=== PATIENT | female | born 1990 | race American Indian/Alaskan Native ===

== ENCOUNTER 2018-09-06 17:36 | Inpatient (IN) | payer OTHER ==
--- NOTE | 2018-09-06 18:06 | History and Physical Report ---
History of Present Illness Date of examination: 09/07/18 Date of admission: 09/06/18 17:36 History of present illness: Sent from [facility] due to low amniotic fluid index seen on ultrasound today pramod oconnell's is complicated by morbid obesity and absent nasal bone patient's been admitted for serial induction Menstrual History Regularity: regular Duration: 5 LMP: 12/20/2017 LMP reliability: definite LMP character: normal test type: urine test Date: 02/11/2018 BC at conception: none Planned ? yes EDC Calculations LMP: 09/26/2018 EDC Confirmation: 09/26/2018 ast History : 4 Term Births: 2 Premature Births: 0 Living Children: 2 Para: 2 Mult. Births: 0 Prev : 0 Prev. attempt? 0 Aborta: 1 Elect. Ab: 0 Spont. Ab: 1 Ectopics: 0 # 1 Delivery date: 06/28/2009 Weeks Gestation: 40 Delivery type: Vaginal Anesthesia type: epidural Delivery location: [facility] Sex: male weight: 9.63 # 2 Delivery date: 2014 Weeks Gestation: 12 Delivery type: SAB Comments: D&C # 3 Delivery date: 06/16/2016 Weeks Gestation: 40 Delivery type: Hours of labor: 8 Anesthesia type: none Delivery location: [place] Infant Sex: Female weight: 7-7 Name: Jorge Past Medical History: Negative Past Medical History Past Surgical History: Breast Reduction: (2012) D&C: (2014) Family History Summary: Other family member - Has No Family History of Ovarvian Cancer - Entered On: 02/11/2018 Other family member - Has No Family History of Colon Cancer - Entered On: 02/11/2018 Other family member - Has No Family History of Breast Cancer - Entered On: 02/11/2018 Other family member - Has Family History of Hypertension - Entered On: 02/11/2018 Other family member - Has Family History of Asthma - Entered On: 02/11/2018 General Comments - FH: no breast, ovarian or colon cancer Social History: single, no etoh, no illicit drug use, no tobacco use Marital Status: engaged Children: 2 Occupation: [employer] Risk Factors: Smoked Tobacco Use: Never smoker Drug use: no Alcohol use: no Dietary Counseling: pn yes Past Medical History 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): Breast Reduction: (2013) D&C: (2015) Abnormal PAP: negative ROXI Exposure: negative Infertility: negative Uterine Anomaly: negative Uterine Surgery (not C/S): negative Other Gynecologic Problems: negative Social Hx: single, no etoh, no illicit drug use, no tobacco use Marital Status: engaged Children: 2 Occupation: [employer] Infection History Hx of STD: chlamydia Genetic History Congenital Heart Defect: Mom: no Dad: no Randall Disease: Mom: no Dad: no Thalassemia Mom: no Dad: no Neural Tube Defect Mom: no Dad: no Down's Syndrome Mom: no Dad: no Isaias-Sachs Mom: no Dad: no Sickle Cell Disease/Trait Mom: no Dad: no Hemophilia Mom: no Dad: no Muscular Dystrophy Mom: no Dad: no Cystic Fibrosis Mom: no Dad: no [place] Chorea Mom: no Dad: no Mental Retardation Mom: no Dad: no Fragile X Mom: no Dad: no Other Genetic/Chromosomal Disorder Mom: no Dad: no Child w/other defect Mom: no Dad: no Current Allergies (reviewed today): PCN (Critical) * AMOXICILLIN (Critical) Past History Past Medical History: other (see HPI) Past Surgical History: other (see HPI) 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) Family/Genetic History: other (see HPI) Social history: other (see HPI) - Obstetrical History Expected Date of Delivery: 09/26/18 Actual Gestation: 37 Week(s) 2 Day(s) : 4 Para: 2 Hx # Term Pregnancies: 2 Number of Pregnancies: 0 Spontaneous Abortions: 1 Induced : 0 Number of Living Children: 2 Medications and Allergies Allergies Allergy/AdvReac Type Severity Reaction Status Date / Time amoxicillin Allergy Severe Swelling Verified 09/06/18 18:26 Penicillins AdvReac Severe Swelling Verified 09/06/18 18:25 Home Medications Medication Instructions Recorded Confirmed Last Taken Type Pnv No.95/Ferrous Fum/Folic AC 1 tab PO DAILY 09/06/18 09/06/18 09/04/18 10:00 History [ Formula Tablet] - Physical Exam Breasts: Positive: deferred Lungs: Positive: Normal air movement Abdomen: Positive: normal appearance, soft Vagina: Positive: normal moisture Uterus: Positive: enlarged Results Result Diagrams: 09/06/18 19:30 All other labs normal. Assessment and Plan - Patient Problems (1) Oligohydramnios Current Visit: Yes Status: Acute Qualifiers: Fetus number: single or unspecified fetus Trimester: third trimester Qualified Code(s): O41.03X0 - Oligohydramnios, third trimester, not applicable or unspecified Plan to address problem: Admit for serial induction with Cervidil tonight and Pitocin in the morning (2) Body mass index (BMI) 45.0-49.9, adult Current Visit: Yes Status: Acute (3) 37 weeks gestation of Current Visit: Yes Status: Acute
[2018-09-06] MEDS ORDERED: PHENERGAN PO PRN (19:09)
[2018-09-06] MEDS ORDERED: BRETHINE SUB-Q PRN (19:09)
[2018-09-06] MEDS ORDERED: BRETHINE IVP PRN (19:09)
[2018-09-06] MEDS ORDERED: STADOL IV PRN (19:09)
[2018-09-06] MEDS ORDERED: XYLOCAINE 2% INFILTRATI ONE (19:09)
[2018-09-06] MEDS: LACTATED RINGERS 1,000 ML IV SCH (19:46)
[2018-09-06 19:47] LABS: Hematocrit 31.3 % (30.3-42.9); Hemoglobin 10.3 gm/dl (10.1-14.3); Mean Corpuscular HGB Conc 33 % (30-34); Platelet Count 230 K/mm3 (140-440); Red Blood Count 4.52 M/mm3 (3.65-5.03); Red Cell Distribution Width 14.7 % (13.2-15.2)
[2018-09-06 19:52] LABS: Mean Corpuscular Volume 69 fl (79-97)
[2018-09-06] MEDS ORDERED: PITOCin/NS 20 UNIT/1000ML DRIP 20 UNITS/1,000 ML BAG IV SCH (20:00)
[2018-09-06] MEDS ORDERED: CERVIDIL VG ONE (21:00)
[2018-09-07] MEDS: LACTATED RINGERS 1,000 ML IV SCH ×2 (02:49→11:48)
--- NOTE | 2018-09-07 07:31 | Progress Note ---
Assessment and Plan pt resting with eyes closed, no complaints. toco registering irritability/ctx q2-4 but patient is unaware. Cervidil to be removed @ 0900. Family to get light breakfast for patient and patient is to do AM care, then will start pitocin. anticipate . - Patient Problems (1) 37 weeks gestation of Current Visit: Yes Status: Acute (2) Body mass index (BMI) 45.0-49.9, adult Current Visit: Yes Status: Acute (3) Oligohydramnios Current Visit: Yes Status: Acute Qualifiers: Fetus number: single or unspecified fetus Trimester: third trimester Qualified Code(s): O41.03X0 - Oligohydramnios, third trimester, not applicable or unspecified Subjective - Subjective Date of service: 09/07/18 Principal diagnosis: IUP @ 37+3, oligo Patient reports: movement normal, no new complaints Objective - Vital Signs Vital Signs: Vital Signs - 12hr 09/06/18 09/06/18 09/06/18 19:36 19:41 19:46 Temperature Pulse Rate 84 78 83 Respiratory Rate Blood Pressure Blood Pressure [Left] O2 Sat by Pulse 96 95 95 Oximetry 09/06/18 09/06/18 09/06/18 19:51 19:57 20:02 Temperature Pulse Rate 82 87 97 H Respiratory Rate Blood Pressure Blood Pressure [Left] O2 Sat by Pulse 95 96 97 Oximetry 09/06/18 09/06/18 09/06/18 20:07 20:12 20:17 Temperature Pulse Rate 83 94 H 84 Respiratory Rate Blood Pressure Blood Pressure [Left] O2 Sat by Pulse 98 96 96 Oximetry 09/06/18 09/06/18 09/06/18 20:20 20:22 20:27 Temperature Pulse Rate 90 95 H 82 Respiratory Rate Blood Pressure Blood Pressure [Left] O2 Sat by Pulse 94 93 95 Oximetry 09/06/18 09/06/18 09/06/18 20:32 20:37 20:38 Temperature Pulse Rate 105 H 106 H 99 H Respiratory Rate Blood Pressure Blood Pressure [Left] O2 Sat by Pulse 95 94 94 Oximetry 09/06/18 09/06/18 09/06/18 20:42 20:44 20:47 Temperature Pulse Rate 98 H 107 H 83 Respiratory Rate Blood Pressure Blood Pressure [Left] O2 Sat by Pulse 95 94 94 Oximetry 09/07/18 09/07/18 09/07/18 00:22 00:52 01:22 Temperature Pulse Rate 89 75 75 Respiratory Rate Blood Pressure 118/66 123/61 118/61 Blood Pressure [Left] O2 Sat by Pulse Oximetry 09/07/18 09/07/18 09/07/18 01:53 02:22 02:53 Temperature Pulse Rate 74 89 74 Respiratory Rate Blood Pressure 93/50 99/56 104/59 Blood Pressure [Left] O2 Sat by Pulse Oximetry 09/07/18 09/07/18 09/07/18 03:22 03:52 04:22 Temperature Pulse Rate 72 71 75 Respiratory Rate Blood Pressure 106/57 94/52 104/57 Blood Pressure [Left] O2 Sat by Pulse Oximetry 09/07/18 09/07/18 09/07/18 04:52 05:22 05:52 Temperature Pulse Rate 80 78 83 Respiratory Rate Blood Pressure 115/67 116/62 115/64 Blood Pressure [Left] O2 Sat by Pulse Oximetry 09/07/18 09/07/18 09/07/18 06:22 07:00 07:01 Temperature 97.7 F Pulse Rate 76 93 H 93 H Respiratory 16 Rate Blood Pressure 113/66 111/74 Blood Pressure 111/74 [Left] O2 Sat by Pulse Oximetry 09/07/18 07:22 Temperature Pulse Rate 85 Respiratory Rate Blood Pressure 131/74 Blood Pressure [Left] O2 Sat by Pulse Oximetry - Exam Breasts: normal Cardiovascular: Regular rate Lungs: Clear to auscultation, Normal air movement Abdomen: Present: normal appearance, soft Vulva: both: normal Uterus: Present: normal FHR: auscultation normal, category 1 Uterine Contraction Monitor Mode: External Uterine Contraction Pattern: Irregular Uterine Tone Measurement Phase: Contraction Uterine Contraction Intensity: Mild Extremities: normal Deep Tendon Reflex Grade: Normal +2 - Labs Labs: Abnormal Labs 09/06/18 19:30 MCV 69 L MCH 23 L Laboratory Results - last 24 hr 09/06/18 09/06/18 19:30 19:30 WBC 7.8 RBC 4.52 Hgb 10.3 Hct 31.3 MCV 69 L MCH 23 L MCHC 33 RDW 14.7 Plt Count 230 Blood Type O POSITIVE Antibody Screen Negative
[2018-09-07] MEDS ORDERED: PITOCin/NS 30 UNIT/500ML 30 UNITS/500 ML BAG IV SCH (09:30)
--- NOTE | 2018-09-07 11:23 | Anesthesia Consultation ---
Anesthesia Consult and Med Hx - Airway Anesthetic Teeth Evaluation: Good ROM Head & Neck: Adequate Mental/Hyoid Distance: Adequate Mallampati Class: Class II Intubation Access Assessment: Probably Good - Pulmonary Exam CTA: Yes - Cardiac Exam Cardiac Exam: RRR - Pre-Operative Health Status ASA Pre-Surgery Classification: ASA2 Proposed Anesthetic Plan: Epidural, Spinal - Pulmonary Hx Smoking: No Hx Asthma: No Hx Respiratory Symptoms: No SOB: Yes COPD: No Home Oxygen Therapy: No Hx Pneumonia: No Hx Sleep Apnea: No - Cardiovascular System Hx Hypertension: No Hx Coronary Artery Disease: No Hx Heart Attack/AMI: No Hx Angina: No Hx Percutaneous Transluminal Coronary Angioplasty (PTCA): No Hx Cardia Arrhythmia: No Hx Pacemaker: No Hx Internal Defibrillator: No Hx Valvular Heart Disease: No Hx Heart Murmur: No Hx Peripheral Vascular Disease: No - Central Nervous System Hx Neuromuscular Disorder: No Hx Seizures: No CVA: No Hx Back Pain: No Hx Psychiatric Problems: No - Gastrointestinal Hx Ulcer: No Hx Gastroesophageal Reflux Disease: No - Endocrine Hx Renal Disease: No Hx End Stage Renal Disease: No Hx Cirrhosis: No Hx Liver Disease: No Hx Insulin Dependent Diabetes: No Hx Non-Insulin Dependent Diabetes: No Hx Thyroid Disease: No Hx Hypothyroidism: No Hx Hyperthyroidism: No - Hematic Hx Anemia: No Hx Sickle Cell Disease: No - Other Systems Hx Alcohol Use: No Hx Substance Use: No Hx Cancer: No Hx Obesity: Yes
--- NOTE | 2018-09-07 13:28 | Progress Note ---
Assessment and Plan called by nurse due to large amount of blood noted from vagina. Approx 100ml of Bright red blood and mucus noted on chucks and towel - no active bleeding at this time. Patient did not tolerate SVE; discussed recommendation for AROM and internal monitors, patient agreed. IV sedation given and SVE done without difficulty. AROM - Bloody fluid. IUPC and ISE placed without difficulty. small blood clot from vagina after placement but no active bleeding. Patient reports precep delivery with last child. Does not feel the need for epidural at this time. CTX intensity palpated moderate (corresponds to reading by toco), resting tone soft. Patient's level of pain seems appropriate for current labor progress. FHT CAT 1 even after IV sedation. Will continue to monotor closely. Dr. Nino consulted prior to AROM and placement of IUPC/ISE. - Patient Problems (1) 37 weeks gestation of Current Visit: Yes Status: Acute (2) Body mass index (BMI) 45.0-49.9, adult Current Visit: Yes Status: Acute (3) Oligohydramnios Current Visit: Yes Status: Acute Qualifiers: Fetus number: single or unspecified fetus Trimester: third trimester Qualified Code(s): O41.03X0 - Oligohydramnios, third trimester, not applicable or unspecified (4) Vaginal bleeding during , antepartum Current Visit: Yes Status: Acute Subjective - Subjective Date of service: 09/07/18 Principal diagnosis: IUP @ 37+3, oligo Patient reports: loss of fluid, vaginal bleeding, movement normal, contractions Objective - Vital Signs Vital Signs: Vital Signs - 12hr 09/07/18 09/07/18 09/07/18 01:22 01:53 02:22 Temperature Pulse Rate 75 74 89 Respiratory Rate Blood Pressure 118/61 93/50 99/56 Blood Pressure [Left] 09/07/18 09/07/18 09/07/18 02:53 03:22 03:52 Temperature Pulse Rate 74 72 71 Respiratory Rate Blood Pressure 104/59 106/57 94/52 Blood Pressure [Left] 09/07/18 09/07/18 09/07/18 04:22 04:52 05:22 Temperature Pulse Rate 75 80 78 Respiratory Rate Blood Pressure 104/57 115/67 116/62 Blood Pressure [Left] 09/07/18 09/07/18 09/07/18 05:52 06:22 07:00 Temperature Pulse Rate 83 76 93 H Respiratory Rate Blood Pressure 115/64 113/66 111/74 Blood Pressure [Left] 09/07/18 09/07/18 09/07/18 07:01 07:22 07:52 Temperature 97.7 F Pulse Rate 93 H 85 87 Respiratory 16 Rate Blood Pressure 131/74 123/75 Blood Pressure 111/74 [Left] 09/07/18 10:04 Temperature Pulse Rate 106 H Respiratory Rate Blood Pressure 127/74 Blood Pressure [Left] - Exam Breasts: normal Cardiovascular: Regular rate Lungs: Clear to auscultation, Normal air movement Abdomen: Present: normal appearance, soft Vulva: both: normal Uterus: Present: normal FHR: category 1 Uterine Contraction Monitor Mode: Internal Cervical Dilatation: 2.5 Cervical Effacement Percentage: 70 station: -1 Uterine Contraction Frequency (min): 2 Uterine Contraction Duration: 60 Uterine Contraction Pattern: Regular Uterine Tone Measurement Phase: Contraction Uterine Contraction Intensity: Moderate (resting tone soft) Extremities: normal - Labs Labs: Abnormal Labs 09/06/18 19:30 MCV 69 L MCH 23 L Laboratory Results - last 24 hr 09/06/18 09/06/18 19:30 19:30 WBC 7.8 RBC 4.52 Hgb 10.3 Hct 31.3 MCV 69 L MCH 23 L MCHC 33 RDW 14.7 Plt Count 230 Blood Type O POSITIVE Antibody Screen Negative
[2018-09-07] MEDS ORDERED: BICITRA ONE (13:35)
[2018-09-07] MEDS ORDERED: XYLOCAINE 2% INFILTRATI ONE (13:35)
[2018-09-07] MEDS ORDERED: CYTOTEC ONE ×2 (13:36)
[2018-09-07] MEDS ORDERED: fentaNYL-BUPIV 2 MCG/ML-0.125% 200 MCG/100 ML BAG EPIDURAL ONE (15:24)
[2018-09-07] MEDS ORDERED: NARCAN 2 MG/2 ML IV PRN (16:05)
--- NOTE | 2018-09-07 16:30 | Procedure Note ---
OB Delivery Note - Delivery Date of Delivery: 09/07/18 ( female) Chief Concierge: MALLIKA RAO Estimated blood loss: 300cc - Vaginal Delivery presentation: vertex Delivery position: OA Intrapartum events: bleeding site-undetermine, other(please specify) (oligohydramnios) Delivery induction: cervidil Delivery augmentation: rupture of membranes, pitocin Delivery monitor: internal FHT, internal uterine Route of delivery: Delivery placenta: spontaneous Delivery cord: nuchal cord (tight around neck and giovanna-crossed across chest), 3 umbilical vessels Episiotomy: none Delivery laceration: none Anesthesia: epidural Delivery comments: patient complete after epidural, female del without patient pushing over intact perineum. cord around neck x 1 and crossed chest - somersaulted through. infant crying and vigiours, placed skin to skin on mother's abdomen. 3 vessel cord clamped and cut. cord blood collected. Placenta del intact and complete. sent to pathology. pit to IVF. no lacerations to repair. Apgars 9/9, wt 6#6oz. mother and remain LDR stable. - Infant A at 1 minute: 9 at 5 minutes: 9 Infant Gender: Female (6#6)
[2018-09-07] MEDS ORDERED: fentaNYL-BUPIV 2 MCG/ML-0.125% 200 MCG/100 ML BAG EPIDURAL SCH (17:00)
[2018-09-07] MEDS ORDERED: SODIUM CHLORIDE FLUSH SYRINGE 10 ML IV NR (18:17)
[2018-09-07] MEDS ORDERED: BENADRYL PO PRN (18:17)
[2018-09-07] MEDS ORDERED: PHENERGAN PO PRN (18:17)
[2018-09-07] MEDS ORDERED: MILK OF MAGNESIA PO PRN (18:17)
[2018-09-07] MEDS ORDERED: TUCKS PAD TP PRN (18:17)
[2018-09-07] MEDS ORDERED: PITOCin/NS 20 UNIT/1000ML DRIP 20 UNITS/1,000 ML BAG IV SCH (18:17)
[2018-09-07] MEDS ORDERED: DULCOLAX PR PRN (18:17)
[2018-09-07] MEDS ORDERED: ZOFRAN IV PRN (18:17)
[2018-09-07] MEDS ORDERED: LANSINOH TP PRN (18:17)
[2018-09-07] MEDS ORDERED: TYLENOL PO PRN (18:17)
[2018-09-07] MEDS ORDERED: IBUPROFEN ONE (18:33)
[2018-09-07] MEDS ORDERED: IBUPROFEN PO ONE (18:33)
[2018-09-07 19:36] LABS: Bilirubin,Urine NEG (Negative); Blood,Urine LG (Negative); Color,Urine Yellow (Yellow); Mucus,Urine FEW /HPF; Protein,Urine <15 mg/dL mg/dL (Negative); Urobilinogen,Urine < 2.0 mg/dL (<2.0)
[2018-09-07 19:37] LABS: Alanine Aminotransferase 9 units/L (7-56); Uric Acid 2.7 mg/dL (3.5-7.6)
[2018-09-07 19:40] LABS: RBC,Urine > 182.0 /HPF (0.0-6.0)
[2018-09-07] MEDS ORDERED: MAGNESIUM SULFATE 4GM/100ML 4 GM/100 ML BAG IV ONE (19:54)
[2018-09-07] MEDS ORDERED: APRESOLINE IV PRN (20:19)
--- NOTE | 2018-09-07 20:26 | Event Note ---
Date: 09/07/18 blood pressure elevated (not r/t pain). pre-e labs normal with only trace proteinuria. Discussed with Dr. Nino, will give dx GHTN and give Mag sulfate x 24hr. Pt may be transfered to MBU after mag has been discontinued. Plan discussed with patient, all questions addressed.
[2018-09-07] MEDS ORDERED: PERCOCET 5/325 PO PRN (20:27)
[2018-09-07] MEDS: MAGNESIUM SULFATE 40GM/1000ML 40 GM/1,000 ML BAG IV SCH (21:29)
[2018-09-08] MEDS: NORMODYNE PO SCH ×3 (03:48→22:18)
[2018-09-08] MEDS: COLACE PO SCH ×3 (05:54→22:18)
[2018-09-08] MEDS: FEOSOL PO SCH ×3 (05:55→22:18)
[2018-09-08 05:58] LABS: Hematocrit 31.6 % (30.3-42.9)
[2018-09-08] MEDS: IBUPROFEN PO SCH ×2 (06:26)
--- NOTE | 2018-09-08 07:12 | Progress Note ---
Assessment and Plan - Patient Problems (1) Gestational hypertension with significant proteinuria, Onset Date: ~09/07/18 Current Visit: Yes Status: Acute Plan to address problem: Pt resting No c/o DOMINIQUE, blurred vision, chest pain. BP 130s/80-70 FF below umb Lochia small perineum intact H&H 06/30 stable from admission Doing well s/p vag delivery GHTN on MGSO4 P: continue pathway MGSO4 due down tonight 2054 Subjective - Subjective Date of service: 09/08/18 Principal diagnosis: Day # 1 s/p ; GHTN MGSO4 X 24hrs Patient reports: appetite normal, voiding normally (clear yellow urine to BSB), pain well controlled [place]: doing well Objective - Vital Signs Latest vital signs: Vital Signs Temp Pulse Resp BP BP Pulse Ox 09/08/18 06:55 75 133/88 09/08/18 06:26 18 09/08/18 06:25 98.2 F 85 18 117/67 09/08/18 05:55 80 130/71 09/08/18 05:25 92 H 116/67 09/08/18 04:55 95 H 110/63 09/08/18 04:25 98.0 F 81 18 114/61 09/08/18 03:56 76 94 09/08/18 03:55 68 147/92 94 09/08/18 03:50 79 96 09/08/18 03:48 76 161/96 09/08/18 03:45 80 94 09/08/18 03:44 76 94 09/08/18 03:40 79 95 09/08/18 03:35 77 95 09/08/18 03:33 75 93 09/08/18 03:30 82 95 09/08/18 03:27 73 94 09/08/18 03:25 77 161/96 92 09/08/18 03:21 77 94 09/08/18 03:20 76 95 09/08/18 03:16 74 94 09/08/18 03:15 75 94 09/08/18 03:10 77 93 09/08/18 03:06 80 94 09/08/18 03:05 79 95 09/08/18 03:02 18 09/08/18 03:00 78 95 09/08/18 02:58 83 94 09/08/18 02:55 67 170/90 92 09/08/18 02:52 84 94 09/08/18 02:50 88 93 09/08/18 02:47 84 94 09/08/18 02:45 93 H 92 09/08/18 02:40 79 94 09/08/18 02:39 83 94 09/08/18 02:35 88 90 09/08/18 02:32 77 94 09/08/18 02:30 79 94 09/08/18 02:25 97.8 F 75 18 149/93 149/93 91 09/08/18 02:20 80 93 09/08/18 02:15 77 94 09/08/18 02:14 78 94 09/08/18 02:10 79 93 09/08/18 02:05 78 94 09/08/18 02:02 18 09/08/18 02:00 76 93 09/08/18 01:59 82 94 09/08/18 01:55 70 163/91 91 09/08/18 01:51 79 94 09/08/18 01:50 102 H 97 09/08/18 01:45 79 98 09/08/18 01:40 84 98 09/08/18 01:35 80 98 09/08/18 01:30 81 98 09/08/18 01:25 78 144/78 98 09/08/18 01:20 88 96 09/08/18 01:15 81 96 09/08/18 01:10 85 97 09/08/18 01:05 82 97 09/08/18 01:00 81 97 09/08/18 00:55 80 137/76 97 09/08/18 00:50 83 96 09/08/18 00:45 82 96 09/08/18 00:40 78 97 09/08/18 00:35 85 96 09/08/18 00:30 82 96 09/08/18 00:25 98.0 F 81 18 130/84 130/84 97 09/08/18 00:20 85 96 09/08/18 00:14 78 97 09/08/18 00:09 77 97 09/08/18 00:04 75 97 09/07/18 23:59 81 97 09/07/18 23:55 75 133/66 09/07/18 23:54 79 96 09/07/18 23:49 105 H 94 09/07/18 23:44 92 H 98 09/07/18 23:25 78 148/80 09/07/18 22:56 90 165/74 09/07/18 22:45 91 H 97 09/07/18 22:40 80 96 09/07/18 22:35 77 97 09/07/18 22:25 97.8 F 77 20 158/86 158/86 09/07/18 22:00 85 95 09/07/18 21:55 82 156/80 96 09/07/18 21:50 85 95 09/07/18 21:45 86 95 09/07/18 21:44 86 94 09/07/18 21:40 85 96 09/07/18 21:35 83 95 09/07/18 21:30 85 96 09/07/18 21:25 78 159/78 95 09/07/18 21:20 90 95 09/07/18 21:17 92 H 144/86 09/07/18 21:15 100 H 96 09/07/18 21:12 77 151/84 09/07/18 21:10 84 95 09/07/18 21:07 79 146/79 09/07/18 21:05 79 95 09/07/18 21:02 85 134/100 09/07/18 20:57 89 166/103 09/07/18 20:49 70 98 09/07/18 20:45 76 182/113 09/07/18 20:44 80 97 09/07/18 20:36 81 95 09/07/18 20:33 83 94 09/07/18 20:31 83 97 09/07/18 20:30 98.1 F 90 18 153/82 152/82 09/07/18 20:26 79 94 09/07/18 20:15 74 160/97 09/07/18 20:08 94 H 96 09/07/18 20:03 85 98 09/07/18 20:00 162/108 09/07/18 19:58 78 98 09/07/18 19:53 84 99 09/07/18 19:48 79 98 09/07/18 19:45 80 158/92 09/07/18 19:43 75 97 09/07/18 19:41 91 H 86 09/07/18 19:38 75 96 09/07/18 19:33 99 H 97 09/07/18 19:30 86 154/82 09/07/18 19:28 89 98 09/07/18 19:23 81 97 09/07/18 19:18 83 97 09/07/18 19:15 74 146/89 09/07/18 19:13 82 98 09/07/18 19:08 76 97 09/07/18 19:03 74 98 09/07/18 19:00 91 H 144/89 09/07/18 18:58 97 H 97 09/07/18 18:53 94 H 97 09/07/18 18:48 86 96 09/07/18 18:46 87 94 09/07/18 18:45 82 156/94 09/07/18 18:43 72 155/88 95 09/07/18 18:00 86 147/91 09/07/18 17:50 81 97 09/07/18 17:45 85 146/91 97 09/07/18 17:42 72 150/90 09/07/18 17:40 92 H 96 09/07/18 17:35 83 97 09/07/18 17:30 73 166/99 98 09/07/18 17:25 77 96 09/07/18 17:20 74 97 09/07/18 17:15 91 H 149/91 97 09/07/18 17:10 88 96 09/07/18 17:05 79 97 09/07/18 17:00 79 142/83 97 09/07/18 16:55 74 97 09/07/18 16:50 85 96 09/07/18 16:45 68 151/86 98 09/07/18 16:43 70 135/84 09/07/18 16:41 84 147/86 09/07/18 16:40 83 96 09/07/18 16:39 73 139/79 09/07/18 16:37 68 135/83 09/07/18 16:35 89 139/85 97 09/07/18 16:33 81 138/84 09/07/18 16:31 79 141/84 09/07/18 16:30 86 97 09/07/18 16:29 91 H 139/85 09/07/18 16:27 83 137/79 09/07/18 16:25 89 140/74 95 09/07/18 16:21 91 H 140/91 09/07/18 16:20 96 H 96 09/07/18 16:19 88 142/81 09/07/18 16:15 104 H 96 09/07/18 16:13 96 H 167/93 09/07/18 16:11 86 143/83 09/07/18 16:10 84 98 09/07/18 16:09 99 H 147/88 09/07/18 16:07 82 145/86 09/07/18 16:05 87 142/86 95 09/07/18 16:04 82 94 09/07/18 16:03 93 H 143/84 09/07/18 16:01 86 146/79 09/07/18 16:00 94 H 142/65 96 09/07/18 15:57 88 140/79 09/07/18 15:55 85 137/76 09/07/18 15:54 94 H 98 09/07/18 15:52 95 H 138/78 09/07/18 15:49 81 97 09/07/18 15:45 100 H 149/79 09/07/18 15:44 102 H 98 09/07/18 15:06 89 94 09/07/18 15:02 98.1 F 86 16 143/86 143/86 95 09/07/18 10:04 106 H 127/74 09/07/18 07:52 87 123/75 09/07/18 07:22 85 131/74 Intake and Output 09/07/18 09/08/18 09/08/18 22:59 06:59 14:59 Intake Total 240 1080 Output Total 700 2200 Balance -460 -1120 Intake: Oral 240 1080 Output: Urine 700 2200 Indwelling Catheter 700 2200 Other: Total, Intake Amount 240 360 Total, Output Amount 700 300 Estimated Blood Loss 300 - Exam Breasts: Present: normal (pumping) Cardiovascular: Present: Regular rate Lungs: Present: Normal air movement Abdomen: Present: normal appearance, soft, normal bowel sounds Uterus: Present: normal, firm, fundal height below umbilicus Extremities: Present: normal Incision: Present: normal, dry, intact - Labs Labs: Abnormal lab results 09/07/18 09/08/18 09/08/18 Range/Units 18:36 05:46 05:46 Hgb 10.0 L (10.1-14.3) gm/dl Creatinine 0.5 L (0.7-1.2) mg/dL Uric Acid 2.7 L (3.5-7.6) mg/dL Magnesium 4.50 H (1.7-2.3) mg/dL Lactate Dehydrogenase 195 H (91-180) units/L
[2018-09-08] MEDS ORDERED: LACTATED RINGERS 1,000 ML ONE (07:18)
[2018-09-08] MEDS: PRENATAL VITAMIN PO SCH (10:01)
[2018-09-08] MEDS: MAGNESIUM SULFATE 40GM/1000ML 40 GM/1,000 ML BAG IV SCH (17:54)
[2018-09-09] MEDS: IBUPROFEN PO SCH (00:05)
--- NOTE | 2018-09-09 08:14 | Discharge Summary ---
Providers - Providers Date of Admission: 09/06/18 17:36 Date of discharge: 09/09/18 (patient desires discharge) Attending physician: SILVESTRE WAGGONER Primary care physician: SILVESTRE WAGGONER Hospitalization Reason for admission: IOL d/t oligohydramnios Condition: Good Pertinent studies: Post delivery H&H 06/30.6. Procedures: , uncomplicated. Hospital course: and post course complicated by gestational htn. Disposition: MO- TO HOME OR SELFCARE - Discharge Diagnoses (1) Gestational hypertension with significant proteinuria, Status: Acute (2) (normal spontaneous vaginal delivery) Status: Acute Core Measure Documentation - Palliative Care Palliative Care/ Comfort Measures: Not Applicable - Core Measures Any of the following diagnoses?: none Exam - Constitutional Vitals: Temp Pulse Resp BP Pulse Ox 98.0 F 74 20 117/67 94 09/09/18 00:00 09/09/18 00:00 09/09/18 00:00 09/09/18 00:00 09/09/18 00:00 General appearance: Present: no acute distress, well-nourished - EENT Eyes: Present: PERRL ENT: hearing intact, clear oral mucosa - Neck Neck: Present: supple, normal ROM - Respiratory Respiratory effort: normal Respiratory: bilateral: CTA - Cardiovascular Heart Sounds: Present: S1 & S2. Absent: rub, click - Extremities Extremities: pulses symmetrical, No edema Peripheral Pulses: within normal limits - Abdominal General gastrointestinal: Present: soft, non-tender, non-distended, normal bowel sounds Female genitourinary: Present: normal - Integumentary Integumentary: Present: clear, warm, dry - Musculoskeletal Musculoskeletal: gait normal, strength equal bilaterally - Psychiatric Psychiatric: appropriate mood/affect, intact judgment & insight - Neurologic Neurologic: CNII-XII intact, moves all extremities - Additional findings Additional findings: Lochia scant, fundus firm. Breast feeding, going well. Plan Activity: no restrictions Diet: regular Follow up with: SILVESTRE WAGGONER MD [Primary Care Provider] - 7 Days (Congratulations! Please call [phone] to schedule a blood pressure check in 1 week. Call for any headaches, visual disturbances, or upper abdominal pain. Please continue taking labetalol as prescribed. Call for any questions or concerns. )
[2018-09-09] MEDS: FEOSOL PO SCH (09:01)
[2018-09-09] MEDS: COLACE PO SCH (09:01)
[2018-09-09] MEDS: PRENATAL VITAMIN PO SCH (09:01)
[2018-09-09] MEDS: NORMODYNE PO SCH (09:01)
[2018-09-09 17:55] VITALS: BP 130/80
== END 2018-09-09 19:30 | disposition home or self-care (01) | DRG 774 ==
LOC: LD 17:36 → OB 09-08 22:07
PROVIDERS: ADMIT Obstetrics & Gynecology; ATTEND Obstetrics & Gynecology
PROC: 10E0XZZ Delivery of Products of Conception, External Approach (ICD-10-PCS; principal; 2018-09-06)
PROC: 3E0P7VZ Introduction of Hormone into Female Reproductive, Via Natural or Artificial Opening (ICD-10-PCS; 2018-09-06)
PROC: 3E0R3BZ Introduction of Anesthetic Agent into Spinal Canal, Percutaneous Approach (ICD-10-PCS; 2018-09-06)
PROC: 00HU33Z Insertion of Infusion Device into Spinal Canal, Percutaneous Approach (ICD-10-PCS; 2018-09-06)
DX: O41.03X0 Oligohydramnios, third trimester, not applicable or unspecified (principal); O13.4 Gestational [pregnancy-induced] hypertension without significant proteinuria, complicating childbirth; O69.81X0 Labor and delivery complicated by cord around neck, without compression, not applicable or unspecified; O99.214 Obesity complicating childbirth; E66.01 Morbid (severe) obesity due to excess calories; Z3A.37 37 weeks gestation of pregnancy; Z37.0 Single live birth; Z82.49 Family history of ischemic heart disease and other diseases of the circulatory system; Z82.5 Family history of asthma and other chronic lower respiratory diseases; Z88.1 Allergy status to other antibiotic agents; Z88.0 Allergy status to penicillin
CPT/HCPCS: 36415; 59200; 81001; 82565; 83615; 83735; 84450; 84460; 84550; 85014; 85018; 85027; 86850; 86900; 86901; 88307; G0378; J0595; J2590; J3475; J7120